=== PATIENT | female | born 1945 | race Caucasian/White ===

== ENCOUNTER 2016-11-30 12:13 | Day surgery (SDC) | payer OTHER ==
[2016-11-30] MEDS ORDERED: Bupivacaine 0.25% SDV* 30 ML ONE (14:32)
[2016-11-30 15:58] VITALS: BP 140/73
--- NOTE | 2016-12-01 05:56 | OP ---
DATE OF OPERATION: 11/30/16 - [facility] DATE OF : 43 SURGEON: Abdirahman Poon MD CHIEF INVESTIGATOR: RAMIRO Mike ANESTHESIOLOGIST: None. ANESTHESIA: Local only with digital block performed with 0.25% plain Marcaine. PRE-OP DIAGNOSIS: Right ring finger mucous cyst. POST-OP DIAGNOSIS: Right ring finger mucous cyst. OPERATIVE PROCEDURE: Excision of right ring finger mucous cyst. INDICATIONS: Heidi has had cyst on the ulnar aspect of the right ring finger DIP joint that has grown and has waxed and waned in size for quite sometime. Recently, it has gotten larger. She wanted the cyst excised. I talked to her about the risks and benefits. She wanted to proceed. ESTIMATED BLOOD LOSS: 5 mL. COMPLICATIONS: None. FINDINGS: As expected, a large ganglion cyst emanating from the interval between the terminal extensor tendon and the ulnar collateral ligament of the DIP joint. DESCRIPTION OF PROCEDURE: Heidi was seen in the preoperative holding area. The correct side, site, and procedure were identified. We came back to the operating room. The arm was prepped and draped in the usual fashion. A time- out was performed. I did give her a digital block in the preoperative holding area with 0.25% plain Marcaine. I began by exsanguinating the finger and with the Tourni-Cot device and leaving that on proximal as a tourniquet through-out the case. I then made a longitudinal incision over the dorsal ulnar aspect of the finger at the junction of the glabrous and dorsal skin. I then T'd this back transversely over the DIP joint. The cyst was adherent to the dermis. I developed the interval between the dermis and the lining of the cyst. The margins were completely released with a Mineral blade. The cyst was coming off of the interval between the terminal extensor tendon and the ulnar collateral ligament. All the cyst and capsule there was excised. I cleaned things up with a rongeur. The area was cauterized with the bipolar cautery. Once this was all completed, I went ahead and irrigated out the wound. The skin was closed with 5-0 Nylon suture. She was able to fully flex and extend the finger after closing the skin. The Tourni-Cot was removed. The wound was dressed with Xeroform, Veronika, and a Coban dressing. She was then taken to the recovery room in stable condition. [id number]/[facility] #: [id number] [facility]
== END 2016-11-30 16:17 | disposition home or self-care (01) ==
LOC: OREAST 12:13
PROVIDERS: ATTEND Orthopaedic Surgery Hand Surgery
DX: M25.841 Other specified joint disorders, right hand (principal); M19.041 Primary osteoarthritis, right hand; M79.644 Pain in right finger(s)
CPT/HCPCS: 88304

== ENCOUNTER 2017-06-14 10:19 | Day surgery (SDC) | payer OTHER ==
[~2017-06-14 10:19] MED LIST: Buffered Lidocaine 0.9% SYRIN* 5 ML/SYR SYRINGE INTRADERM ONE; Bupivacaine 0.25% SDV* 30 ML ONE
[2017-06-14] MEDS ORDERED: ceFAZolin 2 GM PREMIX (*) 2 GM/50 ML BAG IVPB ONE (10:30)
[2017-06-14] MEDS ORDERED: Propofol* 10 MG/ML 20 ML BTL IV PUSH ONE (12:24)
[2017-06-14] MEDS ORDERED: Lidocaine 2% PF * 5 ML VIAL ONE (12:24)
[2017-06-14] MEDS ORDERED: Naloxone* 0.4 MG/ML 1 ML VIAL IV PRN ×2 (13:05→13:07)
[2017-06-14 13:38] VITALS: BP 105/62
--- NOTE | 2017-06-15 10:41 | OP ---
DATE OF OPERATION: 06/14/17 - [facility] DATE OF : 43 SURGEON: Abdirahman Poon MD STAFF AIR DEFENSE OFFICER: RAMIRO Davis. ANESTHESIOLOGIST: Dr. Srivastava. ANESTHESIA: Local MAC. PRE-OP DIAGNOSIS: Right recurrent ring finger mucous cyst. POST-OP DIAGNOSIS: Right recurrent ring finger mucous cyst. OPERATIVE PROCEDURE: 1. Excision of right ring finger distal interphalangeal joint mucous cyst. 2. Local rotational flap measuring 2 x 1 cm. INDICATIONS: Heidi had a mucous cyst excised several months ago. The groove in the nail is completely resolved. The cyst was gone, but then it recurred. It was just right over the dorsal ulnar aspect of the ring finger DIP joint, it was not affecting the nail at all. Unfortunately it just right underneath the skin. There was not really any flap to raise. I told that we will have to excise it together with the skin and then close it with a rotational flap. She understood the risks and benefits, and she wanted to proceed. ESTIMATED BLOOD LOSS: 2 mL. COMPLICATIONS: None. FINDINGS: As expected. DESCRIPTION OF PROCEDURE: Heidi was seen in the preoperative holding area. The correct side, site, and procedure were identified. We came back to the operating room. The arm was prepped and draped in the usual fashion. A time- out was performed. I began by performing a digital block. The Tourni-Cot was then placed on the finger. I then ellipsed out the area of the mucous cyst which measured probably 3 or 4 mm in diameter. This was taken right down to the joint, where it came off the joint and this was excised. I then raised a rotational flap by extending the incision proximally over the dorsal ulnar aspect of the middle phalanx and then transversally as I approached the PIP joint but staying distal to it. Full thickness flap was raised off the paratenon of the terminal extensor tendon. Once I had raised the flap, I was able to better visualize the interval between the ulnar collateral ligament and the terminal extensor tendon. This was cleaned of all debris and any potential tracts where the ganglion had come off were cauterized with the Bovie cautery. Once the entire interval was cauterized and everything was looking nice and clean, and only healthy tissue remained, I rotated the adipocutaneous flap into place. The wound was closed with multiple 4-0 nylon sutures. The Tourni-Cot was cut off. The finger pinked up immediately. The finger was dressed with Xeroform, some 1- inch Veronika and a Coban dressing. She was then taken to recovery room in stable condition. [id number]/[facility] #: [id number] [facility]
== END 2017-06-14 13:33 | disposition home or self-care (01) ==
LOC: OREAST 10:19
PROVIDERS: ATTEND Orthopaedic Surgery Hand Surgery
DX: L72.0 Epidermal cyst (principal); I10 Essential (primary) hypertension; F41.8 Other specified anxiety disorders; M19.90 Unspecified osteoarthritis, unspecified site
CPT/HCPCS: 88304; J0690; J2704

== ENCOUNTER → 2017-12-28 08:35 | Day surgery (SDC) | payer MEDICARE, OTHER ==
[~2017-12-28 08:35] MED LIST changes: -Bupivacaine 0.25% SDV* 30 ML ONE; +Dexamethasone IV* 4 MG/ML 1 ML (4 MG) IV SLOW PU ONE; +Dexamethasone IV* 4 MG/ML 1 ML (4 MG) ONE; +Famotidine IV* 10 MG/ML 2 ML (20 mg) IV ONE; +Famotidine IV* 10 MG/ML 2 ML (20 mg) ONE; +Ibuprofen TAB* 600 MG PO PRN; +Ketorolac INJ* 30 MG/ML 1 ML VIAL ONE; +Lidocaine 2% PF * 5 ML VIAL ONE; +Midazolam* 1 MG/ML 2 ML VIAL (2 MG) ONE; +Ondansetron INJ* 2 MG/ML VIAL ONE; +Propofol* 10 MG/ML 20 ML BTL IV PUSH ONE; +fentaNYL* 50 MCG/ML 2 ML VIAL (100 MCG VIAL) ONE; +oxyCODONE/Acetamin 5/325 MG* TAB PO PRN
[2017-12-28 09:40] LABS: Hematocrit 41 % (35-47); Hemoglobin 14.1 g/dl (12.0-16.0); Mean Corpuscular HGB Conc 34 g/dl (31-36); Mean Corpuscular Hemoglobin 34 pg (27-31); Mean Corpuscular Volume 100 fL (80-97); Mean Platelet Volume 8.1 um3 (7.4-10.4); Platelet Count 142 10^3/ul (150-450); Red Blood Count 4.14 10^6/ul (4.00-5.40); Red Cell Distribution Width 14 % (10.5-15); White Blood Count 4.8 10^3/ul (3.5-10.8)
[2017-12-28 12:21] VITALS: BP 167/79
--- NOTE | 2017-12-28 22:37 | OP ---
AMENDED REPORT NOW INCLUDES DATE OF OPERATION - ESIGNED BEFORE ADJUSTMENT * DATE OF OPERATION: 12/28/17 - [facility] DATE OF : 43 SURGEON: Jeffery Tarango MD ANESTHESIOLOGIST: Dr. Shaffer. ANESTHESIA: General endotracheal anesthesia. PRE-OP DIAGNOSIS: Post menopausal bleeding. POST-OP DIAGNOSIS: Post menopausal bleeding. OPERATIVE PROCEDURE: Dilation, hysteroscopy, curettage. ESTIMATED BLOOD LOSS: Minimal, less than 20 cc. SPECIMENS: Endometrial curettings. FLUIDS: Per Anesthesia. Fluid deficit 50 cc from the hysteroscope. FINDINGS: Small midline uterus. No adnexal masses palpated. Atrophic appearing endometrium throughout. Both tubal ostia were visualized. Complications none. Sponge count correct x2. The patient tolerated the procedure well and was brought to the recovery room awake and in stable condition. DESCRIPTION OF PROCEDURE: The patient was brought to the operating room. When general anesthesia was found to be adequate, the patient was prepped and draped in the usual sterile fashion in the dorsal lithotomy position. Time-out was performed. Exam under anesthesia was performed with the above findings noted. The weighted speculum was placed in the vagina. The anterior lip of the cervix was grasped with a single tooth tenaculum and the cervix was gently and easily dilated with a graduated Greenberg dilators. The uterus sounded to 6.5. The hysteroscope was introduced. There was atrophic-appearing endometrium throughout. No polyps were seen. Both tubal ostia were visualized. The hysteroscope was removed. Endometrial curettage was performed with scant tissue. The endometrial curettings were sent to pathology. The single tooth tenaculum was removed from the anterior lip of the cervix, excellent hemostasis was noted. All instruments were removed from the vagina and the patient was brought to the recovery room awake and in stable condition. [id number]/[facility] #: [id number] [facility]
== END | disposition home or self-care (01) ==
LOC: OR 08:35
PROVIDERS: ATTEND Obstetrics & Gynecology
DX: N95.0 Postmenopausal bleeding (principal); I10 Essential (primary) hypertension; J45.909 Unspecified asthma, uncomplicated; R73.01 Impaired fasting glucose
CPT/HCPCS: 36415; 85027; 86850; 86900; 86901; 88305; J1100; J1885; J2250; J2405; J2704; J3010